=== PATIENT | male | born 1930 | race Caucasian/White ===

== ENCOUNTER 2020-08-01 09:48 | Day surgery (SDC) | payer MEDICARE, OTHER ==
[~2020-08-01 09:48] MED LIST: Acetaminophen 325 MG Tab PO PRN; Cataract Ophth Solution EYELF ONE; Moxifloxacin 0.5% Ophth Soln 3 ML Bottle EYELF ONE; Ondansetron 4 MG/2 ML SDV IVPUSH PRN; Phenylephrine 10% Ophth Soln 5 ML Bot EYELF ONE; Phenylephrine 10% Ophth Soln 5 ML Bot EYELF PRN; Povidone-Iodine 5% Sterile Ophth Soln 30 ML Bottle EYELF ONE; Proparacaine 0.5% Ophth Soln 15 ML Bottle EYELF ONE; Sodium Chloride 0.9% 10 ML Syringe FLUSH PRN; Timolol Maleate 0.5% Ophth Soln 5 ML Bottle EYELF ONE; Tropicamide 1% Ophth Soln 15 ML Bottle EYELF ONE
[2020-08-01] MEDS ORDERED: Midazolam 1 MG/ML 2 ML SDV IV ONE (09:49)
[2020-08-01] MEDS ORDERED: Dexamethasone 4 MG/ML SDV IV ONE (09:49)
[2020-08-01] MEDS ORDERED: Sodium Chloride 0.9% 10 ML Syringe IV ONE (09:49)
[2020-08-01] MEDS ORDERED: Tetracaine HCl/PF 0.5% 4 ML Bottle EYELF ONE (10:38)
[2020-08-01] MEDS ORDERED: Lidocaine 1% 30 ML SDV ONE (10:39)
[2020-08-01] MEDS ORDERED: Apraclonidine 0.5% Ophth Soln 5 ML Bot EYELF ONE (10:39)
[2020-08-01] MEDS ORDERED: Povidone-Iodine 5% Sterile Ophth Soln 30 ML Bottle EYELF ONE (10:39)
[2020-08-01] MEDS ORDERED: Dexamethasone/Neomycin/Polymyxin B Ophth Oint 3.5 GM Tube EYELF ONE (10:40)
[2020-08-01] MEDS ORDERED: Vancomycin 500 MG SDV EYELF ONE (10:40)
[2020-08-01] MEDS ORDERED: Balanced Salt Solution Ophth Irrig 500 ML Bottle IOCULAR ONE (10:40)
[2020-08-01] MEDS ORDERED: Diclofenac Sodium 0.1% Ophth Soln 5 ML Bottle EYELF ONE (10:40)
[2020-08-01] MEDS ORDERED: Chondroitin Sulfate/Hyaluronate Sodium Ophth Inj 0.75 ML Syringe EYELF ONE (10:41)
[2020-08-01] MEDS ORDERED: Dexamethasone 4 MG/ML SDV ONE (10:43)
[2020-08-01] MEDS ORDERED: Carbachol 0.01% Intraocular 1.5 ML Vial EYELF ONE (10:48)
[2020-08-01] MEDS ORDERED: Chondroitin Sulfate/Hyaluronate Sodium Ophth Inj 0.5 ML Syringe IOCULAR ONE (10:49)
--- NOTE | 2020-08-06 07:02 | OR ---
DATE: 08/01/2020 PREOPERATIVE DIAGNOSES: 1. Visually significant mixed cataract, left eye. 2. Primary open angle glaucoma, left eye. POSTOPERATIVE DIAGNOSES: 1. Visually significant mixed cataract, left eye. 2. Primary open angle glaucoma, left eye. PROCEDURES: 1. Extracapsular cataract extraction with intraocular lens implant. 2. Placement of iStent for glaucoma control. SURGEON: Sohan Reed MD ANESTHESIA: Local MAC. INDICATION: Mr. Osborne was seen in the clinic. He is unhappy with his vision, difficulty reading, difficulty seeing the newspaper, difficulty with bright lights and glare, and difficulty driving. Examination reveals mixed cataract. Explained options, offered cataract surgery, and I explained risks, including, but not limited to, infection, retinal detachment, loss of vision, need for additional surgery, and risks associated with anesthesia. We discussed implant options. He has requested a monofocal implant. I recommended surgery with the iStent. OPERATIVE DESCRIPTION: The patient was prepped and draped in a sterile fashion and topical anesthesia was applied. Attention was placed on the operative eye. A sterile lid speculum was placed to allow operative exposure. Paracentesis was made temporal. Intracameral lidocaine was administered. Viscoelastic was injected. A full-thickness corneal incision was made using the trapezoidal blade. Bent needle cystotome was then used to make a small vignesh in the anterior capsule and a 360-degree curvilinear capsulorrhexis was created. Nucleus was then hydrodissected and hydrodelinated using balanced saline solution. Nucleus was then decompressed centrally and rotated and noted to be free of adhesions. Nucleus was then removed using the phacoemulsification handpiece. Additional viscoelastic was then injected into the capsular bag and the intraocular lens was inserted into the capsular bag. The iStent portion of the procedure was then performed. Following removal of the nucleus and cortex, the irrigation and aspiration handpiece was inserted to remove viscoelastic from the posterior surface of the IOL. Additional viscoelastic was then inserted into the anterior chamber angle directly opposite the corneal incision. Miochol was injected into the nasal iris to promote pupillary contraction. The patient's head was then rotated 35 degrees away from the initial position. The operating microscope was also rotated 35 degrees to achieve the proper orientation. The gonioprism was then placed onto the eye. The iStent was then inserted into the anterior chamber with the right hand and the stent was introduced into the pigmented trabecular meshwork. The stent was advanced beneath the trabecular meshwork until approximately two-thirds of the body was covered and then the stent was released from the insertion device. The stent was then tapped into its final resting position using the insertion device. The device was then reinspected to ensure that it was securely in position. The viscoelastic was aspirated from the anterior chamber. Wound and paracentesis sites were hydrated using balanced saline solution. Vancomycin 0.1 mL was injected into the anterior chamber. Intraocular lens was inspected and noted to be clear and well centered. Postoperative drops were placed and a sterile eye patch and shield were placed over the operative eye. The patient was then transported to the postoperative recovery area having tolerated the procedure well. No complications occurred. [facility] /[id number]
== END 2020-08-01 11:55 | disposition home or self-care (01) ==
LOC: DL.SDS 09:48
PROVIDERS: ATTEND Ophthalmology
DX: E11.36 Type 2 diabetes mellitus with diabetic cataract (principal); H40.1120 Primary open-angle glaucoma, left eye, stage unspecified; H25.812 Combined forms of age-related cataract, left eye; I10 Essential (primary) hypertension; E78.5 Hyperlipidemia, unspecified; E11.39 Type 2 diabetes mellitus with other diabetic ophthalmic complication; H42 Glaucoma in diseases classified elsewhere; Z79.899 Other long term (current) drug therapy
CPT/HCPCS: A9270-GY; C1783; J1100; J2001; J2250; J3370; V2632

== ENCOUNTER 2020-10-22 09:25 | Day surgery (SDC) | payer MEDICARE, OTHER ==
[~2020-10-22 09:25] MED LIST changes: -Acetaminophen 325 MG Tab PO PRN; -Cataract Ophth Solution EYELF ONE; +Dextrose 5%-0.45% NaCl 1,000 ML IV SCH; +Midazolam 1 MG/ML 2 ML SDV ONE; -Moxifloxacin 0.5% Ophth Soln 3 ML Bottle EYELF ONE; -Ondansetron 4 MG/2 ML SDV IVPUSH PRN; -Phenylephrine 10% Ophth Soln 5 ML Bot EYELF ONE; -Phenylephrine 10% Ophth Soln 5 ML Bot EYELF PRN; -Povidone-Iodine 5% Sterile Ophth Soln 30 ML Bottle EYELF ONE; -Proparacaine 0.5% Ophth Soln 15 ML Bottle EYELF ONE; -Sodium Chloride 0.9% 10 ML Syringe FLUSH PRN; -Timolol Maleate 0.5% Ophth Soln 5 ML Bottle EYELF ONE; -Tropicamide 1% Ophth Soln 15 ML Bottle EYELF ONE; +fentaNYL 100 MCG/2 ML SDV ONE
[2020-10-22] MEDS ORDERED: Midazolam 1 MG/ML 2 ML SDV IV ONE ×5 (09:26→10:24)
[2020-10-22] MEDS ORDERED: fentaNYL 100 MCG/2 ML SDV IV ONE ×3 (09:26→10:22)
[2020-10-22] MEDS ORDERED: Dextrose 5%-0.45% NaCl 1,000 ML IV SCH (09:30)
--- NOTE | 2020-10-22 17:33 | OR ---
DATE: 10/22/2020 PREOPERATIVE DIAGNOSIS: Bright red rectal bleeding. POSTOPERATIVE DIAGNOSIS: Bright red rectal bleeding. PROCEDURE: Total colonoscopy. ANESTHESIA: Conscious sedation with IV Versed and fentanyl. SPECIMEN: None. FINDINGS: Moderate to significant internal hemorrhoids. These would be his bleeding source. There is no other abnormality on the colonoscopy noted. RECOMMENDATION: Most of this hemorrhoid could be controlled using diet and stool softeners. INDICATION FOR PROCEDURE: This 89-year-old male has intermittent bright red rectal bleeding. PROCEDURE IN DETAIL: After adequate preparation, a colonoscope was inserted into the rectum. This was easily passed all the way to the cecum. Confirmation of the cecum was made by visualization of the ileocecal valve, light shining through the right lower quadrant, and by palpation. The bowel prep was excellent. On withdrawal of the scope, the only abnormality noted were significant internal hemorrhoids. There were no other bleeding sites. No polyps, colitis, diverticula, or mass growth. Air was suctioned from the colon and the scope removed. [facility] /[id number]
== END 2020-10-22 11:50 | disposition home or self-care (01) ==
LOC: DL.ENDO 09:25
PROVIDERS: ATTEND Surgery
DX: K64.8 Other hemorrhoids (principal); Z88.7 Allergy status to serum and vaccine; Z79.899 Other long term (current) drug therapy; Z01.812 Encounter for preprocedural laboratory examination; Z20.822 Contact with and (suspected) exposure to COVID-19
CPT/HCPCS: 45378; J2250; J3010; J7042; U0002